=== PATIENT | male | born 1980 | race Caucasian/White ===

== ENCOUNTER 2018-02-04 19:21 | Emergency (ER) | payer OTHER | END 2018-02-04 21:12 | disposition home or self-care (01) | LOC: M ED 19:21 | DX: S63.296A Dislocation of distal interphalangeal joint of right little finger, initial encounter (principal); W50.0XXA Accidental hit or strike by another person, initial encounter; Y92.328 Other athletic field as the place of occurrence of the external cause; Y93.69 Activity, other involving other sports and athletics played as a team or group | CPT/HCPCS: 73140 ==

== ENCOUNTER 2018-12-15 13:37 | Emergency (ER) | payer OTHER ==
[~2018-12-15] VITALS: Ht 175.3 cm; Wt 86.4 kg
[2018-12-15] MEDS ORDERED: GI COCKTAIL 50ML BTL(HYOSCYAMINE/MAALOX/LIDOCAINE VISCOUS)(1:3:1) PO ONE (17:00)
[2018-12-15] MEDS ORDERED: ASPIRIN 81 MG CHEW TABLET PO ONE (17:00)
[2018-12-15 17:09] LABS: BASO # 0.1 10^3/uL (0.0-0.2); BASO % 0.6 % (0.0-1.0); EOS # 0.1 10^3/uL (0.0-0.50); EOS % 1.5 % (0.0-3.0); HEMATOCRIT 44.1 % (42.0-52.0); HEMOGLOBIN 14.4 g/dl (13.5-17.5); LYMPH # 3.2 10^3/uL (1.5-4.5); LYMPH % 36.3 % (24.0-44.0); MEAN CORPUSCULAR HEMOGLOBIN 28.9 pg (27.0-33.0); MEAN CORPUSCULAR HGB CONC 32.7 g/dl (32.0-36.5); MEAN CORPUSCULAR VOLUME 88.6 fl (80.0-96.0); MONO # 0.8 10^3/uL (0.0-0.8); MONO % 9.1 % (0.0-5.0); NEUTROPHILS # 4.6 10^3/uL (1.8-7.7); NEUTROPHILS % 52.4 % (36.0-66.0); PLATELET COUNT, AUTOMATED 215 10^3/uL (150-450); RED BLOOD COUNT 4.98 10^6/uL (4.30-6.10); WHITE BLOOD COUNT 8.8 10^3/uL (4.0-10.0)
--- NOTE | 2018-12-15 17:26 | REP ---
Chest two views HISTORY: Chest pain Comparison: None The lungs are clear. The heart is normal in size. The pulmonary vasculature is normal in appearance. The bony structure is intact. IMPRESSION: No acute disease. Electronically Signed by Jez Morales MD 12/15/2018 05:18 P
[2018-12-15 17:35] LABS: ALBUMIN 3.8 GM/DL (3.2-5.2); ALT/SGPT 30 U/L (12-78); BILIRUBIN,DIRECT < 0.1 MG/DL (0.0-0.2); BILIRUBIN,TOTAL 0.2 MG/DL (0.2-1.0); BLOOD UREA NITROGEN 13 MG/DL (7-18); CALCIUM LEVEL 9.3 MG/DL (8.5-10.1); CARBON DIOXIDE LEVEL 27 MEQ/L (21-32); CHLORIDE LEVEL 108 MEQ/L (98-107); CPK CREATINE PHOSPHOKINASE 777 U/L (39-308); GLOMERULAR FILTRATION RATE > 60.0 (>60); GLUCOSE, FASTING 83 MG/DL (70-100); MB/CK RELATIVE INDEX 0.31 (< OR =4); POTASSIUM SERUM 4.3 MEQ/L (3.5-5.1); SODIUM LEVEL 141 MEQ/L (136-145); TOTAL PROTEIN 7.7 GM/DL (6.4-8.2); TROPONIN I < 0.02 NG/ML (< 0.10)
[2018-12-15 17:58] LABS: INR 0.83; PROTHROMBIN TIME 11.5 SECONDS (12.1-14.4)
[2018-12-15] MEDS ORDERED: NS 1,000 ML IV ONE (18:15)
[2018-12-15 19:30] VITALS: BP 133/78
--- NOTE | 2018-12-15 22:09 | ECGEPIP ---
Stationary ECG Study [facility] - ED Test Date: 2018-12-15 Pat Name: KAIDEN EMANUEL Department: Room: - Gender: M Supervisor Cereal: : 1980 Requested By: Chester Jackson Order Number: [id number] Reading MD: Steffen Garcia Measurements Intervals [place] Rate: 65 P: 18 CT: 165 QRS: 52 QRSD: 98 T: -7 QT: 366 QTc: 383 Interpretive Statements SINUS RHYTHM NONSPECIFIC T-WAVE ABNORMALITY Comparison tracing not on file Electronically Signed On 12-15-2018 22:09:28 EDT by Steffen Garcia
== END 2018-12-15 19:38 | disposition home or self-care (01) ==
LOC: M ED 13:37
DX: R07.89 Other chest pain (principal); M62.82 Rhabdomyolysis

== ENCOUNTER 2019-03-29 16:55 | Emergency (ER) | payer OTHER ==
[~2019-03-29] VITALS: Ht 175.3 cm; Wt 87.7 kg
[2019-03-29 19:01] VITALS: BP 153/88
--- NOTE | 2019-03-30 08:44 | REP ---
Right femur four views: There are no comparisons. Mineralization and joint spaces are normal. There is no fracture or dislocation. There is focal increased density in the femoral neck, likely a benign bone island, however, if the pain is associated with this location consider follow-up radionuclide bone scan for more assurance. Impression: Focal density in the femoral neck. If there is pain related to the femoral neck, consider radionuclide bone scan for more follow up. No fracture or dislocation. Electronically Signed by Garcia Flood MD 03/30/2019 08:35 A
--- NOTE | 2019-03-30 12:43 | ED PDOC ---
Post-Departure Follow-Up ft [facility] faxed right femur xray for fu Daniel Lassiter MD Mar 30, 2019 12:43
== END 2019-03-29 19:03 | disposition home or self-care (01) ==
LOC: M ED 16:55
DX: M79.651 Pain in right thigh (principal); Z87.81 Personal history of (healed) traumatic fracture

== ENCOUNTER → 2019-04-30 | Outpatient (CLI) | payer OTHER ==
--- NOTE | 2019-04-30 15:35 | REP ---
TRIPLE PHASE BONE SCAN PELVIS AND HIPS: Following the intravenous administration of 21.8 mCi of technetium 99m MDP, the patient's pelvis and hips are imaged in the flow phase, followed by immediate blood pool and 2 hour delayed images in various projections. No abnormal blood flow or blood pooling is seen. There is no abnormal delayed uptake in any of the osseous structures of the pelvis, nor in the proximal femurs. There is no occult fracture. IMPRESSION: Negative triple phase bone scan of the pelvis and hips. No evidence of occult stress fracture at either hip. Electronically Signed by Garcia Gaston MD 04/30/2019 05:47 P
== END ==
LOC: M RAD 10:16
PROVIDERS: ATTEND Physician Assistant Medical
DX: M25.551 Pain in right hip (principal)
CPT/HCPCS: 78315; A9503